=== PATIENT | female | born 1990 | race Caucasian/White ===

== ENCOUNTER 2016-06-25 09:01 | Emergency (ER) | payer BC, MEDICAID, OTHER ==
[2016-06-25 09:19] VITALS: TEMP 98.7; BMI 30.4
[2016-06-25 10:27] LABS: LEUKOCYTES/URINE NEG (NEGATIVE); NITRITE/URINE NEG (NEGATIVE); RBC/URINE 0-2 (0-5); URINE OCCULT BLOOD NEG (NEG/TRACE); WBC/URINE 0-2 (0-5)
[2016-06-25 12:14] LABS: AUTOMATED BASOPHIL 0.5 % (0-2); AUTOMATED EOSINOPHIL 1.4 % (0-5); AUTOMATED LYMPH 29.2 % (17-44); AUTOMATED MONOCYTE 6.6 % (3-10); AUTOMATED NEUTROPHIL 62.3 % (45-76); MPV 8.2 fL (7.4-10.4)
[2016-06-25 12:26] LABS: BLOOD UREA NITROGEN 8 MG/DL (7-17); CALC CORRECTED 9.4 MG/DL (8.4-10.2); CALCIUM 9.3 MG/DL (8.4-10.2); CALCULATED OSMOLALITY 268 MOs/Kg (270-290); CHLORIDE 107 mEq/L (98-107); GLUCOSE 82 MG/DL (70-99); SODIUM LEVEL 141 mEq/L (137-146); TOTAL PROTEIN 7.6 G/DL (6.3-8.2)
--- NOTE | 2016-06-25 12:30 | EDPRACDOC ---
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 Denies pain, itching, fever, urine sx, N/V/D. Last saw [facility] 1 yr ago, dx with HPV. Did not follow up. . Med hx = none. Surgical hx =none. Relevant History: Reports: Sexually Active. Denies: Vaginal Lesions: Reports: None Vaginal Discharge: Reports: White Control Method: Reports: None, Other (boyfriend has vasectomy) Pain Severity: None Pruritis Severity: None Associated Signs & Symptoms: Reports: Vaginal Discharge, Vaginal Bleeding ED Past Medical History - History Reviewed Yes Nurses notes reviewed and agree except as marked - Patient Medical History GI/ History: Denies: Urinary Tract Infection Psychological History: Denies: Depression Systemic History: Reports: Hypothyroidism. Denies: Cancer Surgical History: Reports: Other (CSXN TIMES 3). Denies: Hysterectomy - Family Medical History Reports: Diabetes (MATERNAL/PATERNAL GRANDPARENTS, MOTHER). Denies: Hypertension, Cancer, Stroke, Cardiac Disorders - Social Medical History Smoking Status: Heavy tobacco smoker (5 or more cigarettes/day or daily pipe/ cigar) EDM Review of Systems - Review of Systems ROS Negative Except as Marked: Yes All systems reviewed and were negative except as marked Genitourinary: Vaginal Discharge, Vaginal Bleeding (spotting after menses) - Physical Exam Constitutional: No apparent distress, Alert Oriented to: Time, Person, Place Last recorded Vital Signs: Last Vital Signs Temp 98.7 F 06/25/16 09:15 Pulse 77 06/25/16 09:15 Resp 18 06/25/16 09:15 BP 133/80 06/25/16 09:15 Pulse Ox 98 06/25/16 09:15 Oxygen Pulse Oxygen Saturation 98 O2 Device Room Air Oxygen Flow Rate Fraction of Inspired Oxygen ( FIO2) - HEENT Head: Normal Eye Exam: negative: Conjunctival Injection, Scleral Icterus Oropharynx: negative: Drooling TMJ: Normal Nose: No Symptoms Reported Neck: Normal - Respiratory/Cardiovascular Respiratory: Normal - CTA Cardiovascular: Normal - GI Tenderness: Non tender - Bladder: Normal External: Normal Vagina: Blood Cervix: Blood. negative: Tenderness Uterus: Normal size Adnexa: Bilateral: Normal - Musculoskeletal Back: Normal Extremities: Normal - Integumentary Skin: Normal - Neurologic Mood Description: Normal Thought: Coherent Perception: Normal ED Vaginal Exam External: Normal Vaginal Exam: Blood Vaginal Lesions: None Vaginal Discharge: None Cervix: Blood. negative: Discharge, Tissue, Tenderness, Open Uterus: Normal size Adnexa: Normal - Results 06/25/16 12:00 06/25/16 12:00 WBC 8.2 xk/uL (3.8-10.8) 06/25/16 12:00 RBC 4.86 xM/uL (4.20-5.40) 06/25/16 12:00 Hgb 14.4 g/dL (12.0-16.0) 06/25/16 12:00 Hct 41.9 % (36-47) 06/25/16 12:00 MCV 86 fL (81-99) 06/25/16 12:00 MCH 29.6 pg (27-32) 06/25/16 12:00 MCHC 34.2 g/dl (33-36) 06/25/16 12:00 RDW 12.9 % (11.5-14.5) 06/25/16 12:00 Plt Count 283 xk/uL (130-400) 06/25/16 12:00 MPV 8.2 fL (7.4-10.4) 06/25/16 12:00 Neut % (Auto) 62.3 % (45-76) 06/25/16 12:00 Lymph % (Auto) 29.2 % (17-44) 06/25/16 12:00 [place] % (Auto) 6.6 % (3-10) 06/25/16 12:00 Eos % (Auto) 1.4 % (0-5) 06/25/16 12:00 Baso % (Auto) 0.5 % (0-2) 06/25/16 12:00 Absolute Neuts (auto) 5.08 xk/uL (1.7-8.2) 06/25/16 12:00 Absolute Lymphs (auto) 2.38 xk/uL (0.65-4.75) 06/25/16 12:00 Urine Color Pale yellow 06/25/16 09:55 Urine Clarity Clear 06/25/16 09:55 Urine pH 7.0 (5.0-8.0) 06/25/16 09:55 Ur Specific [place] 1.005 (1.003-1.035) 06/25/16 09:55 Urine Protein Neg (NEG/TRACE) 06/25/16 09:55 Urine Glucose (UA) Neg (NEGATIVE) 06/25/16 09:55 Urine Ketones Neg (NEGATIVE) 06/25/16 09:55 Urine Occult Blood Neg (NEG/TRACE) 06/25/16 09:55 Urine Nitrite Neg (NEGATIVE) 06/25/16 09:55 Urine Bilirubin Neg (NEGATIVE) 06/25/16 09:55 Urine Urobilinogen <2.0 MG/DL (0-1) 06/25/16 09:55 Ur Leukocyte Esterase Neg (NEGATIVE) 06/25/16 09:55 Urine RBC 0-2 (0-5) 06/25/16 09:55 Urine WBC 0-2 (0-5) 06/25/16 09:55 Ur Epithelial Cells Occ 06/25/16 09:55 Urine Bacteria 3+ (NEG/FEW) H 06/25/16 09:55 Urine Test Neg (NEGATIVE) 06/25/16 09:55 Lab Results 06/25/16 06/25/16 06/25/16 12:00 09:55 09:55 WBC 8.2 RBC 4.86 Hgb 14.4 Hct 41.9 MCV 86 MCH 29.6 MCHC 34.2 RDW 12.9 Plt Count 283 MPV 8.2 Neut % (Auto) 62.3 Lymph % (Auto) 29.2 [place] % (Auto) 6.6 Eos % (Auto) 1.4 Baso % (Auto) 0.5 Absolute Neuts (auto) 5.08 Absolute Lymphs (auto) 2.38 Urine Color Pale yellow Urine Clarity Clear Urine pH 7.0 Ur Specific [place] 1.005 Urine Protein Neg Urine Glucose (UA) Neg Urine Ketones Neg Urine Occult Blood Neg Urine Nitrite Neg Urine Bilirubin Neg Urine Urobilinogen <2.0 Ur Leukocyte Esterase Neg Urine RBC 0-2 Urine WBC 0-2 Ur Epithelial Cells Occ Urine Bacteria 3+ H Urine Test Neg Decision Time to Discharge: 13:03 - Departure Disposition: Home Condition: Stable Final Diagnosis: Vaginal bleeding Instructions: Dysfunctional Uterine Bleeding (ED) Education/Counseling Given To: Patient Education/Counseling Given Regarding: Diagnosis, Treatment, Prognosis, Follow Up Referrals: Brandon Soto MD [Staff Physician] - One Week Prescriptions: No Action Levothyroxine [Synthroid, Levoxyl] 75 mcg PO DAILY Sertraline HCl [Zoloft] 100 mg PO DAILY Forms: Excuse Note Additional Instructions: Follow up with [facility]. Return to ED for any new or worsening symptoms.
[2016-06-25 12:53] VITALS: BP 123/61; PULSE 64
[2016-06-28 16:38] LABS: CHLAMY BY NUCLEIC ACID AMP Negative (Negative)
[2016-06-29 07:49] LABS: GC BY NUCLEIC ACID AMP Negative (Negative)
== END 2016-06-25 13:43 | disposition home or self-care (01) ==
LOC: ED 09:01
DX: N93.9 Abnormal uterine and vaginal bleeding, unspecified (principal); E03.9 Hypothyroidism, unspecified; F17.200 Nicotine dependence, unspecified, uncomplicated; Z79.899 Other long term (current) drug therapy
CPT/HCPCS: 36415; 80053; 81001; 81025; 85025; 87210; 87220; 87491; 87591; 99283